=== PATIENT | female | born 1995 | race Caucasian/White ===

== ENCOUNTER 2019-04-19 12:39 | Emergency (ER) | payer OTHER ==
[~2019-04-19] VITALS: Ht 152.4 cm; Wt 106.4 kg
[2019-04-19] MEDS ORDERED: ALBU83IN NEB (12:57)
[2019-04-19] MEDS ORDERED: HYDR50TA70 PO (12:57)
[2019-04-19] MEDS ORDERED: TRAZ-186 PO (12:57)
[2019-04-19] MEDS ORDERED: LEXA1TAB PO (12:57)
[2019-04-19] MEDS ORDERED: LEVALBUTEROL 1.25 MG/0.5 ML CONCENTRATE NEB INH PRN (13:00)
[2019-04-19] MEDS ORDERED: predniSONE 20 MG TAB PO ONE (13:15)
[2019-04-19] MEDS ORDERED: PROAAER10 INH (13:58)
[2019-04-19] MEDS ORDERED: AUGM875T28 PO (13:58)
[2019-04-19] MEDS ORDERED: PRED20TA PO (13:58)
[2019-04-19] MEDS ORDERED: MUCI600T31 PO (13:58)
[2019-04-19] MEDS ORDERED: AUGMENTIN 875 MG TAB PO ONE (14:00)
[2019-04-19 14:04] VITALS: BP 121/72
--- NOTE | 2019-04-19 14:11 | REP ---
REASON: Asthma. COMPARISON: No priors. FINDINGS: The superior mediastinal structures are midline. The cardiac silhouette is unremarkable in size, shape, and position. The diaphragmatic surfaces of the lungs are regular, and the costophrenic angles are clear. The pulmonary snider are clear. The imaged osseous structures are intact. IMPRESSION: There is no acute cardiopulmonary disease. Electronically Signed by Bill Garay DO 04/19/2019 03:36 P
== END 2019-04-19 14:16 | disposition home or self-care (01) ==
LOC: M ED 12:39
DX: J01.90 Acute sinusitis, unspecified (principal); J45.998 Other asthma; R51 Headache; R00.2 Palpitations; F41.9 Anxiety disorder, unspecified; F32.9 Major depressive disorder, single episode, unspecified; Z72.0 Tobacco use; Z79.899 Other long term (current) drug therapy; Z88.8 Allergy status to other drugs, medicaments and biological substances

== ENCOUNTER 2019-07-11 06:51 | Emergency (ER) | payer OTHER ==
[~2019-07-11] VITALS: Ht 152.4 cm; Wt 104.5 kg
[~2019-07-11 06:51] MED LIST: ALBU83IN NEB; AUGM875T28 PO; HYDR50TA70 PO; LEXA1TAB PO; MUCI600T31 PO; PRED20TA PO; PROAAER10 INH; TRAZ-186 PO
[2019-07-11] MEDS ORDERED: METOCLOPRAMIDE INJ 10MG/2ML VIAL (J2765) IV ONE (07:00)
[2019-07-11] MEDS ORDERED: NS 1,000 ML IV ONE (07:00)
[2019-07-11 07:34] LABS: BASO # 0.1 10^3/uL (0.0-0.2); BASO % 0.8 % (0.0-1.0); EOS # 0.4 10^3/uL (0.0-0.50); EOS % 4.1 % (0.0-3.0); HEMATOCRIT 45.3 % (36.0-47.0); HEMOGLOBIN 14.9 g/dl (12.0-15.5); LYMPH # 2.8 10^3/uL (1.5-6.5); LYMPH % 30.6 % (24.0-44.0); MEAN CORPUSCULAR HEMOGLOBIN 29.3 pg (27.0-33.0); MEAN CORPUSCULAR HGB CONC 32.9 g/dl (32.0-36.5); MONO # 0.6 10^3/uL (0.0-0.8); MONO % 6.5 % (0.0-5.0); NEUTROPHILS # 5.2 10^3/uL (1.8-7.7); NEUTROPHILS % 57.7 % (36.0-66.0); PLATELET COUNT, AUTOMATED 360 10^3/uL (150-450); RED BLOOD COUNT 5.09 10^6/uL (4.00-5.40)
[2019-07-11 07:39] LABS: APPEARANCE, URINE HAZY (CLEAR); BACTERIA, URINE AUTO 1+ (NEGATIVE); BILIRUBIN, URINE AUTO NEGATIVE (NEGATIVE); BLOOD, URINE BLOOD 2+ (NEGATIVE); COLOR, URINE YELLOW (YELLOW); GLUCOSE, URINE (UA) AUTO NEGATIVE (NEGATIVE); KETONE, URINE AUTO NEGATIVE (NEGATIVE); LEUKOCYTE ESTERASE, URINE AUTO 1+ (NEGATIVE); MUCUS, URINE SMALL (NEGATIVE); NITRITE, URINE AUTO NEGATIVE (NEGATIVE); PROTEIN, URINE AUTO NEGATIVE (NEGATIVE); RBC, URINE AUTO 11 /HPF (0-3); SPECIFIC GRAVITY URINE AUTO 1.023 (1.002-1.035); SQUAMOUS EPITHELIAL CELL UR AU 14 /HPF (0-6); UROBILINOGEN, URINE AUTO 0.2 mg/dL (0.0-2.0); WBC, URINE AUTO 2 /HPF (0-3)
[2019-07-11 07:55] LABS: HCG, SERUM QUALITATIVE POSITIVE (NEGATIVE)
[2019-07-11 07:56] LABS: ALBUMIN 3.7 GM/DL (3.2-5.2); ALT/SGPT 13 U/L (12-78); AMYLASE 40 U/L (25-115); BILIRUBIN,DIRECT 0.1 MG/DL (0.0-0.2); BILIRUBIN,TOTAL 0.6 MG/DL (0.2-1.0); BLOOD UREA NITROGEN 18 MG/DL (7-18); CARBON DIOXIDE LEVEL 26 MEQ/L (21-32); CHLORIDE LEVEL 107 MEQ/L (98-107); GLOMERULAR FILTRATION RATE > 60.0 (>60); GLUCOSE, FASTING 80 MG/DL (70-100); LIPASE 78 U/L (73-393); POTASSIUM SERUM 4.2 MEQ/L (3.5-5.1); SODIUM LEVEL 138 MEQ/L (136-145); TOTAL PROTEIN 7.8 GM/DL (6.4-8.2)
[2019-07-11 08:28] LABS: HCG, SERUM QUANTITATIVE 166 MIU/ML
[2019-07-11 09:51] VITALS: BP 137/67
[2019-07-11] MEDS ORDERED: AMOX500C PO (10:00)
== END 2019-07-11 10:24 | disposition home or self-care (01) ==
LOC: M ED 06:51
DX: Z32.01 Encounter for pregnancy test, result positive (principal); O21.9 Vomiting of pregnancy, unspecified; O99.519 Diseases of the respiratory system complicating pregnancy, unspecified trimester; O99.330 Smoking (tobacco) complicating pregnancy, unspecified trimester; O99.89 Other specified diseases and conditions complicating pregnancy, childbirth and the puerperium; G43.909 Migraine, unspecified, not intractable, without status migrainosus; R19.7 Diarrhea, unspecified; Z79.899 Other long term (current) drug therapy; Z88.8 Allergy status to other drugs, medicaments and biological substances
CPT/HCPCS: 36415; 80048; 80076; 81001; 82150; 83690; 84702; 84703; 85025; 96361; 96374; 99284; J2765

== ENCOUNTER 2019-07-13 09:31 | Emergency (ER) | payer OTHER ==
[~2019-07-13] VITALS: Ht 152.4 cm; Wt 104.5 kg
[~2019-07-13 09:31] MED LIST changes: +AMOX500C PO
--- NOTE | 2019-07-13 11:23 | REP ---
Renal ultrasound for right flank pain: The kidneys are normal size. The right kidney measures 10.4 x 5.5 x 3.4 cm. The left kidney measures 11.4 x 5.4 x 5.1 cm. Renal cortical echogenicity is normal bilaterally. There is no hydronephrosis on the right on the left. There are no solid or cystic renal masses. There are no renal calculi. Impression: Essentially negative renal ultrasound. Bladder: The bladder is nondistended and cannot be evaluated Electronically Signed by Lasha Hernandez MD 07/13/2019 11:14 A
[2019-07-13 11:30] LABS: BASO % 0.4 % (0.0-1.0); EOS # 0.2 10^3/uL (0.0-0.50); EOS % 2.3 % (0.0-3.0); HEMATOCRIT 46.6 % (36.0-47.0); HEMOGLOBIN 15.6 g/dl (12.0-15.5); LYMPH # 3.1 10^3/uL (1.5-6.5); LYMPH % 32.8 % (24.0-44.0); MEAN CORPUSCULAR HEMOGLOBIN 29.5 pg (27.0-33.0); MEAN CORPUSCULAR HGB CONC 33.5 g/dl (32.0-36.5); MEAN CORPUSCULAR VOLUME 88.3 fl (80.0-96.0); MONO # 0.6 10^3/uL (0.0-0.8); MONO % 6.7 % (0.0-5.0); NEUTROPHILS # 5.5 10^3/uL (1.8-7.7); NEUTROPHILS % 57.6 % (36.0-66.0); PLATELET COUNT, AUTOMATED 392 10^3/uL (150-450); RED BLOOD COUNT 5.28 10^6/uL (4.00-5.40); WHITE BLOOD COUNT 9.5 10^3/uL (4.0-10.0)
--- NOTE | 2019-07-13 11:39 | REP ---
Obstetric ultrasound, stat request for right flank pain, emergency room request: The studies performed with transabdominal, endovaginal and Doppler ultrasound assessment: The uterus is anteverted and normal size measuring 7.2 x 4.3 x 6.7 cm. There is a tiny cyst within the endometrial canal measuring 2.2 x 1.3 x 2.6 mm, possibly a tiny distal sac. There is no pole or yolk sac. The the mean sac diameter is 2.0 ml. This corresponds to a gestational age of 4 weeks 6 days. Right ovary: The right ovary measures 3.2 x 1.5 x 2.3 cm and is normal size. There is no dominant mass or cyst. There is vascular flow with the Doppler resistive index of 0.57. Left ovary: The left ovary measures 3.8 x 2.5 x 2.7 cm and is normal size. There is no dominant mass or cyst. There is vascular flow with the Doppler resistive index of the parenchymal arteries measuring 0.60. There is no free fluid in the pelvis. There are two isoechoic stones in the myometrium, likely fibroids, measuring 0.7 x 0 point of by 0.6 cm and 0.8 x 0.8 x 1.0 cm. Impression: Probable tiny intrauterine gestational sac with no pole or yolk sac as described. Gestational age based on mean gestational sac size 4 weeks 6 days. There are probable to fibroids in the myometrium. There is vascular flow in both ovaries. There is no dominant mass or cyst in either ovary. No free fluid in the pelvis. Electronically Signed by Lasha Hernandez MD 07/13/2019 11:30 A
[2019-07-13 11:56] LABS: ALBUMIN 3.7 GM/DL (3.2-5.2); BILIRUBIN,DIRECT 0.1 MG/DL (0.0-0.2); BILIRUBIN,TOTAL 0.6 MG/DL (0.2-1.0); TOTAL PROTEIN 7.3 GM/DL (6.4-8.2)
[2019-07-13] MEDS ORDERED: KEFL500C17 PO ×2 (12:13→12:20)
[2019-07-13 12:17] VITALS: BP 127/84
== END 2019-07-13 12:30 | disposition home or self-care (01) ==
LOC: M ED 09:31
DX: O23.41 Unspecified infection of urinary tract in pregnancy, first trimester (principal); O99.511 Diseases of the respiratory system complicating pregnancy, first trimester; O99.341 Other mental disorders complicating pregnancy, first trimester; O99.331 Smoking (tobacco) complicating pregnancy, first trimester; O99.211 Obesity complicating pregnancy, first trimester; Z3A.01 Less than 8 weeks gestation of pregnancy; Z88.8 Allergy status to other drugs, medicaments and biological substances

== ENCOUNTER 2019-08-20 15:13 | Emergency (ER) | payer OTHER ==
[~2019-08-20] VITALS: Ht 152.4 cm; Wt 112.7 kg
[~2019-08-20 15:13] MED LIST changes: +KEFL500C17 PO
[2019-08-20 15:14] VITALS: BP 148/110
[2019-08-20] MEDS ORDERED: prenatal (15:21)
[2019-08-20] MEDS ORDERED: ONDA4TAB5 PO (15:21)
[2019-08-20] MEDS ORDERED: BUSP5TA PO (15:21)
[2019-08-20] MEDS ORDERED: PREN29TA4 PO (16:02)
[2019-08-20] MEDS ORDERED: PERCOCET 5MG/325MG TAB PO ONE (16:45)
--- NOTE | 2019-08-20 18:03 | REPVR ---
PROCEDURE INFORMATION: Exam: US Duplex Right Lower Extremity Veins, Limited Exam date and time: 08/20/2019 5:34 PM Clinical history: 23 years old, female; Pain; Leg, lower; Right; Additional info: Swelling, pain TECHNIQUE: Imaging protocol: Real-time Duplex ultrasound of the Right Lower Extremity with 2-D baig scale, color Doppler flow and spectral waveform analysis with image documentation. Limited exam was focused on the right lower extremity veins. COMPARISON: No relevant prior studies available. FINDINGS: Right deep veins: Unremarkable. The common femoral, femoral, proximal profunda femoral and popliteal veins are patent without thrombus. Normal Doppler waveforms. Normal compressibility and/or augmentation response. Right superficial veins: Unremarkable. Saphenofemoral junction is patent without thrombus. Soft tissues: Unremarkable. IMPRESSION: No DVT of the right lower extremity. Electronically signed by: Brenton Mackey On 08/20/2019 18:03:04 PM
== END 2019-08-20 18:15 | disposition home or self-care (01) ==
LOC: M ED 15:13
DX: O9A.211 Injury, poisoning and certain other consequences of external causes complicating pregnancy, first trimester (principal); S86.011A Strain of right Achilles tendon, initial encounter; X58.XXXA Exposure to other specified factors, initial encounter; Y92.89 Other specified places as the place of occurrence of the external cause; Z3A.10 10 weeks gestation of pregnancy; F41.9 Anxiety disorder, unspecified; Z88.8 Allergy status to other drugs, medicaments and biological substances; Z79.899 Other long term (current) drug therapy; O99.331 Smoking (tobacco) complicating pregnancy, first trimester; F17.210 Nicotine dependence, cigarettes, uncomplicated

== ENCOUNTER 2019-08-28 17:42 | Emergency (ER) | payer OTHER ==
[2019-08-20 17:54] VITALS: BP 125/75
[~2019-08-28 17:42] MED LIST changes: +BUSP5TA PO; +ONDA4TAB5 PO; +PREN29TA4 PO; +prenatal
== END 2019-08-28 23:50 | disposition left against medical advice (07) ==
LOC: M ED 17:42
DX: Z53.29 Procedure and treatment not carried out because of patient's decision for other reasons (principal)

== ENCOUNTER → 2019-10-16 | Outpatient (CLI) | payer OTHER ==
--- NOTE | 2019-10-16 17:14 | REP ---
Clinical: Anatomical evaluation. Comparison: None . Findings: Examination demonstrates a single live intrauterine in transverse (head to maternal right) presentation. motion is identified by technologist. Placenta is noted anterior and grade zero with evidence for placenta previa. Amniotic fluid volume is normal. Cervix measures 3.8 cm in length and appears closed. No evidence for nuchal cord. Gestational age by current measurements 18 weeks 1 day with NOE 03/17/2020 . FHR equals 147 beats per minute. BPD 3.9 cm 17 weeks 6 days HC 14.8 cm 17 weeks 6 days AC 14.0 cm 19 weeks 3 days FL 2.6 cm 18 weeks 0 days HL 2.4 cm 17 weeks 4 days HC/AC ratio 1.06 Estimated weight 249 grams (66th percentile). Anatomical assessment demonstrates normal structures including cranium, choroid plexus, cavum, cerebellum/posterior fossa, lungs, diaphragm, stomach, cord insertion/three-vessel cord, bladder, spine, and extremities. Impression: 1. Single live intrauterine in transverse lie demonstrating appropriate interval growth. 2. Placenta previa noted. 3. Limited evaluation of the facial features, heart/ventricular outflow tracts and kidneys. Electronically Signed by Jaden Hugo MD 10/16/2019 05:07 P
== END ==
LOC: M RAD 14:56
PROVIDERS: ATTEND Advanced Practice Midwife
DX: O44.22 Partial placenta previa NOS or without hemorrhage, second trimester (principal); Z3A.18 18 weeks gestation of pregnancy

== ENCOUNTER 2019-10-19 07:58 | Emergency (ER) | payer OTHER ==
[~2019-10-19] VITALS: Ht 152.4 cm; Wt 116.8 kg
[2019-10-19 08:41] LABS: BASO % 0.3 % (0.0-1.0); EOS # 0.2 10^3/uL (0.0-0.5); EOS % 1.6 % (0.0-3.0); HEMATOCRIT 40.1 % (36.0-47.0); HEMOGLOBIN 12.9 g/dl (12.0-15.5); LYMPH # 2.1 10^3/uL (1.5-5.0); LYMPH % 18.3 % (24.0-44.0); MEAN CORPUSCULAR HEMOGLOBIN 28.3 pg (27.0-33.0); MEAN CORPUSCULAR HGB CONC 32.2 g/dl (32.0-36.5); MEAN CORPUSCULAR VOLUME 87.9 fl (80.0-96.0); MONO # 0.6 10^3/uL (0.0-0.8); MONO % 4.9 % (0.0-5.0); NEUTROPHILS # 8.6 10^3/uL (1.5-8.5); NEUTROPHILS % 74.4 % (36.0-66.0); PLATELET COUNT, AUTOMATED 364 10^3/uL (150-450); RED BLOOD COUNT 4.56 10^6/uL (4.00-5.40); WHITE BLOOD COUNT 11.6 10^3/uL (4.0-10.0)
[2019-10-19 08:46] LABS: APPEARANCE, URINE CLOUDY (CLEAR); BACTERIA, URINE AUTO 1+ (NEGATIVE); BILIRUBIN, URINE AUTO NEGATIVE (NEGATIVE); BLOOD, URINE BLOOD 2+ (NEGATIVE); COLOR, URINE YELLOW (YELLOW); GLUCOSE, URINE (UA) AUTO NEGATIVE (NEGATIVE); KETONE, URINE AUTO NEGATIVE (NEGATIVE); LEUKOCYTE ESTERASE, URINE AUTO NEGATIVE (NEGATIVE); MUCUS, URINE SMALL (NEGATIVE); NITRITE, URINE AUTO NEGATIVE (NEGATIVE); PROTEIN, URINE AUTO NEGATIVE (NEGATIVE); RBC, URINE AUTO 7 /HPF (0-3); SPECIFIC GRAVITY URINE AUTO 1.023 (1.002-1.035); SQUAMOUS EPITHELIAL CELL UR AU 17 /HPF (0-6); UROBILINOGEN, URINE AUTO 0.2 mg/dL (0.0-2.0); WBC, URINE AUTO 3 /HPF (0-3)
--- NOTE | 2019-10-19 09:18 | REP ---
LUMBOSACRAL SPINE: AP and lateral views of the lumbosacral spine are performed. No compression fracture or malalignment is seen. There is normal lumbar lordosis. Disc spaces are well preserved. Posterior elements appear intact. IMPRESSION: No evidence of fracture or dislocation. Electronically Signed by Lasha Plaza MD 10/19/2019 03:50 P
[2019-10-19 09:20] LABS: BLOOD UREA NITROGEN 9 MG/DL (7-18); CALCIUM LEVEL 8.4 MG/DL (8.5-10.1); CARBON DIOXIDE LEVEL 23 MEQ/L (21-32); CHLORIDE LEVEL 109 MEQ/L (98-107); CREATININE FOR GFR 0.58 MG/DL (0.55-1.30); GLOMERULAR FILTRATION RATE > 60.0 (>60); GLUCOSE, FASTING 85 MG/DL (70-100); HCG, SERUM QUANTITATIVE 14091 MIU/ML; POTASSIUM SERUM 4.2 MEQ/L (3.5-5.1); SODIUM LEVEL 139 MEQ/L (136-145)
[2019-10-19] MEDS ORDERED: ACETAMINOPHEN 325 MG TAB PO ONE (10:30)
[2019-10-19] MEDS ORDERED: LIDOCAINE 5% (LIDODERM) PATCH TD ONE (10:30)
[2019-10-19 10:59] VITALS: BP 122/77
[2019-10-19] MEDS ORDERED: **NOTE PATIENT COMMENT** MISC XX ONE (21:00)
== END 2019-10-19 11:17 | disposition home or self-care (01) ==
LOC: EDBD 07:58 → M ED 07:58
DX: O9A.212 Injury, poisoning and certain other consequences of external causes complicating pregnancy, second trimester (principal); O99.333 Smoking (tobacco) complicating pregnancy, third trimester; S30.0XXA Contusion of lower back and pelvis, initial encounter; Y92.009 Unspecified place in unspecified non-institutional (private) residence as the place of occurrence of the external cause; Y93.9 Activity, unspecified; W10.8XXA Fall (on) (from) other stairs and steps, initial encounter; Z3A.18 18 weeks gestation of pregnancy; Z79.899 Other long term (current) drug therapy